=== PATIENT | male | born 1990 | race Caucasian/White ===

== ENCOUNTER → 2023-09-23 | Emergency (ER) | payer OTHER ==
[~2023-09-23] MED LIST: ONDANSETRON 4 MG (ODT) TAB ONE
--- OUTSIDE RECORDS SUMMARY | 2023-09-23 10:46 | XMS REPORT | Continuity of Care Document ---
Author Name Unknown Address [address] [place] [address] [place], [place] [id number] [facility] Address [address] [place] [address]. [address] [place] [address] Care Team Providers Care Evening Sitter Name Role Phone HEIDI Attending Clinician Unavailable HEIDI Admitting Clinician Unavailable Payers Payer Name Policy Type Policy Number Effective Date Expirati on Date Source Encounters Start Date/Time End Date/Time Encounter Type Admission Type Attending Clinicians Care Facility Care Department Encounter ID Source 2023-01-08 00:00:00 2023-01-08 00:00:00 Outpatient FIDENCIO KNAPP AOSM AOSM [id number] [facility] 2023-01-01 00:00:00 2023-01-01 00:00:00 Outpatient DIANE_RIDDHI EE AOSM AOSM [id number] [facility]
--- NOTE | 2023-09-23 11:03 | ER ---
Nurse's Notes [facility] Name: Santiago Lopez Age: 33 yrs Sex: Male : 1990 Arrival Date: 09/23/2023 Time: 10:44 Bed 6 Private MD: Diagnosis: Vomiting without nausea;Diarrhea, unspecified Presentation: 09/23 10:49 Chief complaint: Patient states: N/V/D began yesterday. Cough, congestion, fatigue ll1 also. Coronavirus screen: Vaccine status: Patient reports being unvaccinated. Client denies travel out of the [place] in the last 14 days. congestion, cough unrelated to allergies, diarrhea, fatigue, headache, nausea, vomiting. Client presents with at least one sign or symptom that may indicate coronavirus-19. Standard/surgical mask placed on the client. Ebola Screen: Patient denies travel to an Ebola-affected area in the 21 days before illness onset. Initial Sepsis Screen: Does the patient meet any 2 criteria? No. Patient's initial sepsis screen is negative. Does the patient have a suspected source of infection? No. Patient's initial sepsis screen is negative. Risk Assessment: Do you want to hurt yourself or someone else? Patient reports no desire to harm self or others. Onset of symptoms was September 22, 2023. 10:49 Method Of Arrival: Ambulatory ll1 10:49 Acuity: ROSAS 4 ll1 Triage Assessment: 10:50 General: Appears uncomfortable, Behavior is calm, cooperative, appropriate for age. ll1 Pain: Complains of pain in head Pain currently is 4 out of 10 on a pain scale. Quality of pain is described as aching. Respiratory: Reports cough that is. GI: Reports diarrhea, nausea, vomiting. Historical: - Allergies: 10:49 No Known Allergies; ll1 - PMHx: 10:49 None; ll1 - PSHx: 10:49 knee sx; ll1 - Immunization history:: Adult Immunizations up to date. - Social history:: Smoking status: Patient reports the use of cigarette tobacco products, smokes one-half pack cigarettes per day. - Family history:: not pertinent. Screenin:50 [facility] ED Fall Risk Assessment (Adult) History of falling in the last 3 months, rs5 including since admission No falls in past 3 months (0 pts) Confusion or Disorientation No (0 pts) Intoxicated or Sedated No (0 pts) Impaired Gait No (0 pts) Mobility Assist Device Used No (0 pt) Altered Elimination No (0 pt) Score/Fall Risk Level 0 - 2 = Low Risk Oriented to surroundings, Maintained a safe environment. Abuse screen: Denies threats or abuse. Nutritional screening: No deficits noted. Tuberculosis screening: No symptoms or risk factors identified. Assessment: 10:50 General: Appears in no apparent distress. comfortable, Behavior is calm, cooperative. rs5 Pain: Complains of pain in lower abdominal pain bilat Pain does not radiate. Pain currently is 3 out of 10 on a pain scale. Quality of pain is described as aching, Pain began 1 day ago. Is continuous. 10:50 Neuro: Level of Consciousness is awake, alert, obeys commands, Oriented to person, rs5 place, time. Cardiovascular: Patient's skin is warm and dry. Rhythm is regular. Respiratory: Reports cough that is non-productive, since this morning (09/23/23) Airway is patent Respiratory effort is even, unlabored, Respiratory pattern is regular, symmetrical, Breath sounds are clear bilaterally. GI: Abdomen is flat, non-distended, Bowel sounds present X 4 quads. Abd is soft and non tender X 4 quads. Reports nausea, vomiting. : No signs and/or symptoms were reported regarding the genitourinary system. EENT: No signs and/or symptoms were reported regarding the EENT system. Derm: Skin is intact, Skin is pink, warm \\T\\ dry. Musculoskeletal: Range of motion: intact in all extremities. 10:50 Reassessment: Pt states "my stomach hurts a little, but I think it's from throwing up. rs5 The pain isn't bad right now". 11:06 Reassessment: Patient and/or family updated on plan of care and expected duration. Pain rs5 level reassessed. Patient is alert, oriented x 3, equal unlabored respirations, skin warm/dry/pink. Vital Signs: 10:49 BP 126 / 91; Pulse 85; Resp 17; Temp 98.2; Pulse Ox 100% ; Weight 58.97 kg; Height 5 ll1 ft. 7 in. ; Pain 4/10; 11:06 BP 130 / 90; Pulse 80; Resp 17; Temp 98.2(O); Pulse Ox 99% on R/A; rs5 10:49 Body Mass Index 20.36 (58.97 kg, 170.18 cm) ll1 10:49 Pain Scale: Adult ll1 ED Course: 10:45 Patient arrived in ED. rg4 10:45 Jason Gonzalez MD is Attending Physician. rt 10:48 Jay Blankenship, RN is Primary Nurse. ll1 10:50 Triage completed. ll1 10:50 Arm band placed on. ll1 10:50 Patient has correct armband on for positive identification. Placed in gown. Bed in low rs5 position. Call light in reach. Side rails up X2. 11:07 No provider procedures requiring assistance completed. Patient did not have IV access rs5 during this emergency room visit. Administered Medications: 11:03 Drug: Ondansetron Oral Disintegrating Tablet Oral Disintegrating Tablet 4 mg PO once rs5 Route: PO; 11:08 Follow up: Response: No adverse reaction; Nausea is decreased rs5 Medication: 11:08 VIS not applicable for this client. rs5 Outcome: 11:02 Discharge ordered by . rt 11:07 Discharged to home ambulatory, rs5 11:07 Condition: stable 11:07 Discharge instructions given to patient, Instructed on discharge instructions, follow up and referral plans. Demonstrated understanding of instructions, follow-up care, 11:21 Patient left the ED. rs5 Signatures: Melinda Davis rg4 Jay Blankenship, RN RN ll1 Jason Gonzalez MD MD rt Matthias Faulkner RN RN rs5 Corrections: (The following items were deleted from the chart) 10:49 10:49 PSHx: None; ll1 ll1
--- NOTE | 2023-09-23 11:03 | EDPHYS ---
Physician Documentation [facility] Name: Santiago Lopez Age: 33 yrs Sex: Male : 1990 Arrival Date: 09/23/2023 Time: 10:44 Bed 6 Private MD: ED Physician Jason Gonzalez HPI: 09/23 12:40 This 33 yrs old Male presents to ER via Ambulatory with complaints of Vomiting. rt 12:40 Patient presents to the ED with nausea vomiting, diarrhea started yesterday. He has rt associated cough. Denies any abdominal pain, difficulty breathing. Denies other acute complaints at this time, symptoms are mild in severity, no other aggravating or elevating factors.. Historical: - Allergies: 10:49 No Known Allergies; ll1 - PMHx: 10:49 None; ll1 - PSHx: 10:49 knee sx; ll1 - Immunization history:: Adult Immunizations up to date. - Social history:: Smoking status: Patient reports the use of cigarette tobacco products, smokes one-half pack cigarettes per day. - Family history:: not pertinent. ROS: 12:40 Constitutional: Negative for fever, chills, and weight loss, Cardiovascular: Negative rt for chest pain, palpitations, and edema, MS/Extremity: Negative for injury and deformity, Skin: Negative for injury, rash, and discoloration, Neuro: Negative for headache, weakness, numbness, tingling, and seizure, Psych: Negative for depression, anxiety, suicide ideation, homicidal ideation, and hallucinations, 12:40 Respiratory: Positive for cough, Negative for shortness of breath, 12:40 Abdomen/GI: Positive for nausea, vomiting, and diarrhea, Negative for abdominal pain, Exam: 12:40 Constitutional: This is a well developed, well nourished patient who is awake, alert, rt and in no acute distress. Head/Face: Normocephalic, atraumatic. Chest/axilla: Normal chest wall appearance and motion. Nontender with no deformity. No lesions are appreciated. Cardiovascular: Regular rate and rhythm with a normal S1 and S2. No gallops, murmurs, or rubs. Normal PMI, no JVD. No pulse deficits. Respiratory: Lungs have equal breath sounds bilaterally, clear to auscultation and percussion. No rales, rhonchi or wheezes noted. No increased work of breathing, no retractions or nasal flaring. Abdomen/GI: Soft, non-tender, with normal bowel sounds. No distension or tympany. No guarding or rebound. No evidence of tenderness throughout. Skin: Warm, dry with normal turgor. Normal color with no rashes, no lesions, and no evidence of cellulitis. MS/ Extremity: Pulses equal, no cyanosis. Neurovascular intact. Full, normal range of motion. Neuro: Awake and alert, GCS 15, oriented to person, place, time, and situation. Cranial nerves II-XII grossly intact. Motor strength 5/5 in all extremities. Sensory grossly intact. Cerebellar exam normal. Normal gait. Psych: Awake, alert, with orientation to person, place and time. Behavior, mood, and affect are within normal limits. Vital Signs: 10:49 BP 126 / 91; Pulse 85; Resp 17; Temp 98.2; Pulse Ox 100% ; Weight 58.97 kg; Height 5 ll1 ft. 7 in. ; Pain 4/10; 11:06 BP 130 / 90; Pulse 80; Resp 17; Temp 98.2(O); Pulse Ox 99% on R/A; rs5 10:49 Body Mass Index 20.36 (58.97 kg, 170.18 cm) ll1 10:49 Pain Scale: Adult ll1 MDM: 10:57 Patient medically screened. rt 12:40 Differential diagnosis: Viral syndrome, gastroenteritis. Data reviewed: vital signs, rt nurses notes. I considered the following discharge prescriptions or medication management in the emergency department Medications were administered in the Emergency Department. See MAR. Test considered but Not performed: Other Details Stable vital signs, no abdominal pain, no focal tenderness, very low suspicion for pathology such as pancreatitis, appendicitis, cholecystitis, labs, imaging not indicated, patient stable for outpatient care with antiemetics.. Counseling: I had a detailed discussion with the patient and/or guardian regarding the historical points, exam findings, and any diagnostic results supporting the discharge/admit diagnosis, the need for outpatient follow up, to return to the emergency department if symptoms worsen or persist or if there are any questions or concerns that arise at home. Administered Medications: 11:03 Drug: Ondansetron Oral Disintegrating Tablet Oral Disintegrating Tablet 4 mg PO once rs5 Route: PO; 11:08 Follow up: Response: No adverse reaction; Nausea is decreased rs5 Disposition Summary: 09/23/23 11:02 Discharge Ordered Notes: Location: Home rt Problem: new rt Symptoms: have improved rt Condition: Stable rt Diagnosis - Vomiting without nausea rt - Diarrhea, unspecified rt Followup: rt - With: Private Physician - When: 5 - 6 days - Reason: Discharge Instructions: - Discharge Summary Sheet rt - Diarrhea, Adult rt - Nausea and Vomiting, Adult rt Forms: - Work release form rt - Medication Reconciliation Form rt - Thank You Letter rt - Antibiotic Education rt - Prescription Opioid Use rt - Patient Portal Instructions rt - Leadership Thank You Letter rt Prescriptions: - ondansetron 4 mg Oral Tablet,disintegrating - take 1 tablet ORAL route every 6 hours; 18 tablet; Refills: 0, Product rt Selection Permitted Signatures: Jay Blankenship RN RN ll1 Jason Gonzalez MD MD rt Matthias Faulkner RN RN rs5 Corrections: (The following items were deleted from the chart) 10:49 10:49 PSHx: None; 1 1
[2023-09-23 11:27] VITALS: TEMP 98.2
[2023-09-23 11:33] VITALS: BP 130/90; O2SAT 99
== END ==
LOC: ER 10:44
DX: R11.11 Vomiting without nausea (principal); R19.7 Diarrhea, unspecified; F17.210 Nicotine dependence, cigarettes, uncomplicated
CPT/HCPCS: 99283; Q0162